=== PATIENT | male | born 1985 | race Caucasian/White ===

== ENCOUNTER 2017-01-11 12:31 | Emergency (ER) | payer OTHER ==
[~2017-01-11] VITALS: Ht 170.2 cm; Wt 75.0 kg
[~2017-01-11 12:31] MED LIST: CIPROFLOXACN500 MG PO; NO HOME MEDS; ULTRAM50 M1 PO
[2017-01-11 13:44] LABS: HEMATOCRIT 45.5 % (39.0-50.0); HEMOGLOBIN 16.3 g/dl (14.0-18.0); IMMATURE GRANULOCYTES 0.2 % (0.0-1.0); MEAN CORPUSCULAR HGB 33.7 pG CALC (26.0-32.0); MEAN CORPUSCULAR HGB CONC 35.8 g/L CALC (32.0-36.0); NEUT# 7.53 thou/uL (1.82-7.42); RED BLOOD COUNT 4.84 mill/uL (4.70-6.10); RED CELL DISTRI WIDTH 11.7 % (11.5-15.5)
[2017-01-11 14:00] LABS: ALBUMIN 4.6 g/dL (3.2-5.0); ALKALINE PHOSPHATASE 67 u/l (38-126); AMYLASE < 30 u/l (30-110); BILIRUBIN, TOTAL 1.2 mg/dL (0.0-1.4); BUN 8 mg/dL (9-20); BUN/CREATININE RATIO 9 (12-20 (CALC)); CALCIUM 9.3 mg/dL (8.4-10.2); CARBON DIOXIDE 25 mmol/l (22-30); CHLORIDE 96 mmol/l (95-108); CREATININE 0.9 mg/dL (0.7-1.3); GFR > 60 ML/MIN (>=60 (CALC)); GFR FOR AFR.AMER. > 60 ML/MIN (>=60 (CALC)); GLUCOSE 97 mg/dL (75-110); LIPASE 31 u/l (23-300); SGOT/AST 46 u/l (17-59); SGPT/ALT 16 u/l (21-72); SODIUM 133 mmol/l (137-146); TOTAL PROTEIN 8.5 g/dL (6.3-8.2)
[2017-01-11 14:08] LABS: ANION GAP 17 (6-22 (CALC))
[2017-01-11 14:28] LABS: POTASSIUM 5.3 mmol/l (3.5-5.1)
[2017-01-11 14:56] LABS: URINE BILIRUBIN - DIPSTICK SMALL (NEGATIVE); URINE BLOOD DIPSTICK NEGATIVE (NEGATIVE); URINE CLARITY CLEAR; URINE COLOR YELLOW; URINE GLUCOSE - DIPSTICK NEGATIVE (NEGATIVE); URINE KETONE TRACE mg/dL (NEGATIVE); URINE LEUK ESTERASE NEGATIVE (NEGATIVE); URINE NITRITE - DIPSTICK NEGATIVE (Negative); URINE PROTEIN - DIPSTICK 30 mg/dL (NEG-TRACE); URINE SPECIFIC GRAVITY 1.025
[2017-01-11 15:04] LABS: URINE SQUAMOUS EPITHELIAL CELL FEW EPI/hpf (0-FEW)
[2017-01-11] MEDS ORDERED: NEXIUM40 M1 PO (15:13)
[2017-01-11] MEDS ORDERED: ZOFRAN ODT4 MG PO (15:13)
[2017-01-11 15:24] VITALS: BP 138/80
== END 2017-01-11 15:30 | disposition home or self-care (01) | DRG 392 ==
LOC: ED 12:31
PROVIDERS: Emergency Medicine
DX: R10.12 Left upper quadrant pain (principal); K92.0 Hematemesis; R11.2 Nausea with vomiting, unspecified; F17.210 Nicotine dependence, cigarettes, uncomplicated
CPT/HCPCS: S0164

== ENCOUNTER 2017-04-19 12:04 | Emergency (ER) | payer OTHER ==
[~2017-04-19] VITALS: Ht 170.2 cm; Wt 73.0 kg
[~2017-04-19 12:04] MED LIST changes: +NEXIUM40 M1 PO; +ZOFRAN ODT4 MG PO
[2017-04-19] MEDS ORDERED: GENTAK0.32 OS (12:47)
[2017-04-19] MEDS ORDERED: CIPROFLOXACN500 MG PO (12:47)
[2017-04-19 12:59] VITALS: BP 129/73
== END 2017-04-19 12:59 | disposition home or self-care (01) | DRG 125 ==
LOC: ED 12:04
DX: H10.9 Unspecified conjunctivitis (principal)

== ENCOUNTER 2019-08-12 15:09 | Emergency (ER) | payer SELFPAY ==
[~2019-08-12] VITALS: Ht 170.2 cm; Wt 70.0 kg
[~2019-08-12 15:09] MED LIST changes: +GENTAK0.32 OS
[2019-08-12] MEDS ORDERED: HYDROCO/APAP1 TA9 PO (15:54)
[2019-08-12 16:33] VITALS: BP 125/89
== END 2019-08-12 16:33 | disposition home or self-care (01) | DRG 563 ==
LOC: ED 15:09
PROC: 2W3EX1Z Immobilization of Right Hand using Splint (ICD-10-PCS; principal; 2019-08-12)
DX: S62.306A Unspecified fracture of fifth metacarpal bone, right hand, initial encounter for closed fracture (principal); F17.210 Nicotine dependence, cigarettes, uncomplicated; W22.09XA Striking against other stationary object, initial encounter

== ENCOUNTER 2020-10-12 13:35 | Emergency (ER) | payer SELFPAY ==
[~2020-10-12] VITALS: Ht 170.2 cm; Wt 68.0 kg
[~2020-10-12 13:35] MED LIST changes: +HYDROCO/APAP1 TA9 PO
[2020-10-12] MEDS ORDERED: MEDDOSEPAK PO (15:49)
[2020-10-12 16:12] VITALS: BP 127/72
== END 2020-10-12 16:12 | disposition home or self-care (01) | DRG 563 ==
LOC: ED 13:35
DX: S39.012A Strain of muscle, fascia and tendon of lower back, initial encounter (principal); F17.200 Nicotine dependence, unspecified, uncomplicated; X58.XXXA Exposure to other specified factors, initial encounter

== ENCOUNTER 2020-12-21 | Emergency (ER) | payer OTHER ==
[~2020-12-21] MED LIST changes: +MEDDOSEPAK PO
[2020-12-21] MEDS ORDERED: KEFLEX500 M1 PO (17:45)
[2020-12-21] MEDS ORDERED: BACTROBAN TOP (17:45)
[2020-12-21] MEDS ORDERED: NO HOME MEDS (18:19)
== END 2020-12-21 18:21 | disposition home or self-care (01) | DRG 603 ==
DX: L03.012 Cellulitis of left finger (principal); S61.112A Laceration without foreign body of left thumb with damage to nail, initial encounter; F17.200 Nicotine dependence, unspecified, uncomplicated; V49.40XA Driver injured in collision with unspecified motor vehicles in traffic accident, initial encounter; W22.11XA Striking against or struck by driver side automobile airbag, initial encounter

== ENCOUNTER 2021-04-14 20:03 | Emergency (ER) | payer SELFPAY ==
[~2021-04-14 20:03] MED LIST changes: +BACTROBAN TOP; +KEFLEX500 M1 PO
[2021-04-14] MEDS ORDERED: VOLTAREN75 MG PO (21:31)
[2021-04-14] MEDS ORDERED: BACTRIM DS1 TAB PO (21:31)
[2021-04-14 22:00] VITALS: BP 123/83
== END 2021-04-14 22:06 | disposition home or self-care (01) | DRG 558 ==
LOC: ED 20:03
DX: M70.22 Olecranon bursitis, left elbow (principal); F17.200 Nicotine dependence, unspecified, uncomplicated